=== PATIENT | female | born 1945 | race Caucasian/White ===

== ENCOUNTER 2018-06-14 17:27 | Emergency (ER) | payer MEDICARE, BC ==
[~2018-06-14] VITALS: Ht 165.1 cm; Wt 89.8 kg
[~2018-06-14 17:27] MED LIST: ASPI-1265 PO; BIMA2.5D EACHEYE; CALC-729 PO; CIPR-230 PO; FISH1CAP15 PO; METR-159 PO; MULT-1085 PO; RAMI5CAP65 PO; ROSU5TAB PO
[2018-06-14 18:41] LABS: BASOPHILS # (AUTO) 0.1 X10'3 (0-0.2); BASOPHILS % (AUTO) 0.4 % (0-1); EOSINOPHILS # (AUTO) 0.1 X10'3 (0-0.9); EOSINOPHILS % (AUTO) 0.4 % (0-6); HEMATOCRIT 41.4 % (35.0-45.0); HEMOGLOBIN 13.7 g/dl (12.0-16.0); LYMPHOCYTES # (AUTO) 1.3 X10'3 (1.1-4.8); LYMPHOCYTES % (AUTO) 8.2 % (21-51); MEAN CORPUSCULAR HEMOGLOBIN 27.9 PG (27.0-31.0); MEAN CORPUSCULAR VOLUME 84.5 FL (78-98); MEAN PLATELET VOLUME 8.5 FL (7.4-10.4); MONOCYTES # (AUTO) 0.8 X10'3 (0-0.9); MONOCYTES % (AUTO) 4.9 % (2-12); NEUTROPHILS # (AUTO) 13.8 X10'3 (1.8-7.7); NEUTROPHILS % (AUTO) 86.1 % (42-75); PLATELET COUNT 276 X10'3 (140-440); RED CELL DISTRIBUTION WIDTH 12.3 % (11.5-14.5); WHITE BLOOD COUNT 16.1 X10'3 (4.5-11.0)
[2018-06-14 18:49] LABS: ALANINE AMINOTRANSFERASE 28 U/L (12-78); ALBUMIN/GLOBULIN RATIO 1.1 (1.1-1.5); ALKALINE PHOSPHATASE 99 IU/L (46-116); AMYLASE 112 U/L (25-115); ANION GAP 12 (8-16); ASPARTATE AMINO TRANSFERASE 18 U/L (10-37); BILIRUBIN,TOTAL 0.5 MG/DL (0.1-1.0); BLOOD UREA NITROGEN 24 MG/DL (7-18); BUN/CREATININE RATIO 27.6 (6.6-38.0); CALCIUM 9.5 MG/DL (8.5-10.1); CHLORIDE 102 MMOL/L (99-107); CREATININE 0.87 MG/DL (0.40-0.90); GLUCOSE 161 MG/DL (70-104); LIPASE 194 U/L (73-393); POTASSIUM 3.9 MMOL/L (3.5-5.1); SODIUM 140 MMOL/L (135-145); TOTAL CARBON DIOXIDE 25.7 MMOL/L (24-32); TOTAL PROTEIN 7.8 G/DL (6.4-8.2); eGFR 64 ML/MIN
[2018-06-14 19:06] LABS: PROTHROMBIN TIME 10.2 SECONDS (9.0-12.0)
[2018-06-14] MEDS ORDERED: ciprofloxacin 250mg tablet PO ONE (20:45)
[2018-06-14] MEDS ORDERED: metroNIDAZOLE-Flagyl 500mg/NS 100 ML IV ONE (20:45)
[2018-06-14] MEDS ORDERED: normal saline 1000ML IV soln IVB ONE (20:45)
[2018-06-14] MEDS ORDERED: acetaminophen 325mg tablet PO ONE (21:30)
[2018-06-14] MEDS ORDERED: METR-159 PO (22:24)
[2018-06-14] MEDS ORDERED: CIPR-230 PO (22:24)
[2018-06-14] MEDS ORDERED: DICY10CA88 PO (22:24)
[2018-06-14] MEDS ORDERED: dicyclomine 10 MG capsule PO ONE (22:25)
[2018-06-14 23:26] VITALS: BP 124/59
== END 2018-06-14 23:38 | disposition home or self-care (01) ==
LOC: ER 17:27
DX: K52.9 Noninfective gastroenteritis and colitis, unspecified (principal); I10 Essential (primary) hypertension; E11.9 Type 2 diabetes mellitus without complications; Z88.8 Allergy status to other drugs, medicaments and biological substances; Z79.82 Long term (current) use of aspirin
CPT/HCPCS: 36415; 80053; 82150; 83690; 85025; 85610; 86885; 86900; 86901; 96365; 99284; J3490; J7030

== ENCOUNTER 2021-06-25 10:43 | Emergency (ER) | payer MEDICARE, BC ==
[~2021-06-25] VITALS: Ht 165.1 cm; Wt 92.5 kg
[~2021-06-25 10:43] MED LIST changes: +CIPR-202 PO; -CIPR-230 PO; +DICY10CA88 PO
[2021-06-25 11:22] LABS: BASOPHILS # (AUTO) 0.1 X10'3 (0-0.2); BASOPHILS % (AUTO) 0.5 % (0-1); EOSINOPHILS % (AUTO) 0.2 % (0-6); HEMATOCRIT 36.7 % (35.0-45.0); HEMOGLOBIN 12.4 g/dl (12.0-16.0); LYMPHOCYTES # (AUTO) 1.7 X10'3 (1.1-4.8); LYMPHOCYTES % (AUTO) 14.3 % (21-51); MEAN CORPUSCULAR HEMOGLOBIN 28.7 PG (27.0-31.0); MEAN CORPUSCULAR HGB CONC 33.9 g/dL (33.0-36.5); MEAN CORPUSCULAR VOLUME 84.7 FL (78-98); MEAN PLATELET VOLUME 8.1 FL (7.4-10.4); MONOCYTES # (AUTO) 0.7 X10'3 (0-0.9); MONOCYTES % (AUTO) 5.7 % (2-12); NEUTROPHILS # (AUTO) 9.6 X10'3 (1.8-7.7); NEUTROPHILS % (AUTO) 79.3 % (42-75); PLATELET COUNT 270 X10'3 (140-440); RED BLOOD COUNT 4.33 X10'6 (4.20-5.60); RED CELL DISTRIBUTION WIDTH 13.4 % (11.5-14.5)
[2021-06-25 11:43] LABS: ALANINE AMINOTRANSFERASE 30 U/L (12-78); ALBUMIN 3.6 G/DL (3.4-5.0); ALKALINE PHOSPHATASE 93 IU/L (46-116); ANION GAP 8 (8-16); ASPARTATE AMINO TRANSFERASE 17 U/L (10-37); BLOOD UREA NITROGEN 18 MG/DL (7-18); BUN/CREATININE RATIO 18.8 (6.6-38.0); CALCIUM 8.9 MG/DL (8.5-10.1); CHLORIDE 101 MMOL/L (99-107); CREATININE 0.96 MG/DL (0.40-0.90); GLUCOSE 200 MG/DL (70-104); LIPASE < 50 U/L (73-393); POTASSIUM 3.8 MMOL/L (3.5-5.1); SODIUM 137 MMOL/L (135-145); TOTAL CARBON DIOXIDE 28.3 MMOL/L (24-32); TOTAL PROTEIN 7.3 G/DL (6.4-8.2); eGFR 57 ML/MIN
[2021-06-25] MEDS ORDERED: ringers solution, lacted 1,000 ML IV ONE (12:45)
[2021-06-25] MEDS ORDERED: morphine 4 MG/ML inj SYRINge IV ONE (12:45)
[2021-06-25] MEDS ORDERED: iohexol 300mg/ml 100ml inj. ONE (13:36)
[2021-06-25 14:57] VITALS: BP 166/73
--- NOTE | 2021-06-25 15:20 | NUR ---
ELIZA CALLED, PHONE #[phone]
[2021-06-25] MEDS ORDERED: METR-159 PO (15:49)
[2021-06-25 16:13] LABS: CLARITY,URINE CLEAR (Clear); COLOR,URINE YELLOW (Yellow); GLUCOSE, URINE NEGATIVE (Neg); KETONES,URINE NEGATIVE (Neg); LEUKOCYTE ESTERASE ,URINE NEGATIVE (Neg); NITRITES, URINE NEGATIVE (Neg); OCCULT BLOOD,URINE TRACE-INTACT (Neg); PH,URINE 5.5 (4.8-8.0); PROTEIN,URINE NEGATIVE (Neg); UROBILINOGEN,URINE 0.2 E.U/dL (0.2-1.0)
[2021-06-25 16:15] LABS: UA COLLECTION TYPE CLN CATCH MIDSTREAM
[2021-06-25 16:24] LABS: BACTERIA,URINE NONE SEEN /HPF (Neg); RBC,URINE 0-2 /HPF (0-2); SQUAMOUS EPITHELIAL CELL,UR FEW /LPF (FEW); WBC,URINE 0-4 /HPF (0-4)
== END 2021-06-25 16:44 | disposition home or self-care (01) ==
LOC: ER 10:44
DX: K52.9 Noninfective gastroenteritis and colitis, unspecified (principal); Z87.19 Personal history of other diseases of the digestive system
CPT/HCPCS: 36415; 74177; 80053; 81001; 83690; 85025; 96361; 96374; 99285; J2270; J7120; Q9967

== ENCOUNTER 2023-02-01 09:12 | Emergency (ER) | payer MEDICARE, BC ==
[~2023-02-01] VITALS: Ht 165.1 cm; Wt 90.9 kg
[2023-02-01 09:14] VITALS: BP 215/80; PULSE 74; RESP 16; TEMP 97; O2SAT 96
[2023-02-01] MEDS ORDERED: CYCL-1 PO ×3 (10:18→14:02)
--- NOTE | 2023-02-01 10:27 | NUR ---
PT PRESENTS TO THE ER FOR MECHANICAL FALL LAST NIGHT AROUND 8PM. PT DENIES DIZZINESS, PT STATES " THERE WAS WATER ON THE FLOOR". PAIN DENIES PAIN.
== END 2023-02-01 10:52 | disposition home or self-care (01) ==
LOC: ER 09:13
DX: M25.551 Pain in right hip (principal); I10 Essential (primary) hypertension; E11.9 Type 2 diabetes mellitus without complications; Z88.8 Allergy status to other drugs, medicaments and biological substances; Z79.899 Other long term (current) drug therapy; Z88.6 Allergy status to analgesic agent; W19.XXXA Unspecified fall, initial encounter; Y93.89 Activity, other specified; Y92.89 Other specified places as the place of occurrence of the external cause; Y99.8 Other external cause status
CPT/HCPCS: 73502; 99284

== ENCOUNTER 2023-08-13 08:59 | Emergency (ER) | payer MEDICARE, BC ==
[~2023-08-13] VITALS: Ht 165.1 cm; Wt 101.7 kg
[~2023-08-13 08:59] MED LIST changes: +CYCL-1 PO
[2023-08-13] MEDS: normal saline 1000ML IV soln IVB ONE (09:25)
[2023-08-13] MEDS: acetaminophen 1,000mg/100ml IV 100 ML IV STA (09:26)
[2023-08-13 09:44] LABS: BASOPHILS % (AUTO) 0.6 % (0-1); EOSINOPHILS # (AUTO) 0.1 X10'3 (0-0.9); HEMATOCRIT 41.6 % (35.0-45.0); LYMPHOCYTES # (AUTO) 1.2 X10'3 (1.1-4.8); LYMPHOCYTES % (AUTO) 15.9 % (21-51); MEAN CORPUSCULAR HEMOGLOBIN 28.7 PG (27.0-31.0); MEAN CORPUSCULAR HGB CONC 33.7 g/dL (33.0-36.5); MEAN CORPUSCULAR VOLUME 85.2 FL (78-98); MEAN PLATELET VOLUME 8.4 FL (7.4-10.4); MONOCYTES # (AUTO) 0.4 X10'3 (0-0.9); MONOCYTES % (AUTO) 4.8 % (2-12); NEUTROPHILS # (AUTO) 5.9 X10'3 (1.8-7.7); NEUTROPHILS % (AUTO) 77.7 % (42-75); PLATELET COUNT 202 X10'3 (140-440); RED BLOOD COUNT 4.88 X10'6 (4.20-5.60); RED CELL DISTRIBUTION WIDTH 14.1 % (11.5-14.5); WHITE BLOOD COUNT 7.6 X10'3 (4.5-11.0)
[2023-08-13 10:35] LABS: BILIRUBIN,URINE NEGATIVE (Neg); CLARITY,URINE SLIGHTLY CLOUDY (Clear); COLOR,URINE YELLOW (Yellow); GLUCOSE, URINE >=1000 mg/dl (Neg); KETONES,URINE NEGATIVE (Neg); LEUKOCYTE ESTERASE ,URINE NEGATIVE (Neg); NITRITES, URINE NEGATIVE (Neg); OCCULT BLOOD,URINE NEGATIVE (Neg); PH,URINE 5.5 (4.8-8.0); PROTEIN,URINE NEGATIVE (Neg); UROBILINOGEN,URINE 0.2 E.U/dL (0.2-1.0)
[2023-08-13 10:38] LABS: ALANINE AMINOTRANSFERASE 29 U/L (12-78); ALBUMIN 3.8 G/DL (3.4-5.0); ALBUMIN/GLOBULIN RATIO 1.1 (1.1-1.5); ALKALINE PHOSPHATASE 70 IU/L (46-116); ANION GAP 10 (8-16); ASPARTATE AMINO TRANSFERASE 19 U/L (10-37); BILIRUBIN,TOTAL 0.5 MG/DL (0.1-1.0); BLOOD UREA NITROGEN 16 MG/DL (7-18); BUN/CREATININE RATIO 17.8 (10.0-20.0); CALCIUM 9.6 MG/DL (8.5-10.1); CHLORIDE 104 MMOL/L (99-107); GLUCOSE 203 MG/DL (70-104); LIPASE 35 U/L (16-77); SODIUM 143 MMOL/L (135-145); TOTAL CARBON DIOXIDE 28.7 MMOL/L (24-32); TOTAL PROTEIN 7.4 G/DL (6.4-8.2); eCRCL 47 ML/MIN; eGFR 61 ML/MIN
[2023-08-13 10:48] LABS: SQUAMOUS EPITHELIAL CELL,UR MANY /LPF (FEW); UA COLLECTION TYPE CLN CATCH MIDSTREAM
[2023-08-13 10:50] LABS: BACTERIA,URINE FEW /HPF (Neg); WBC,URINE 0-4 /HPF (0-4); YEAST MANY /HPF (NEGATIVE)
[2023-08-13] MEDS ORDERED: iohexol 300mg/ml 100ml inj. ONE (11:04)
[2023-08-13] MEDS ORDERED: CIPR-20 PO (12:26)
[2023-08-13] MEDS ORDERED: METR-159 PO (12:26)
[2023-08-13 13:01] VITALS: BP 164/7; PULSE 77
[2023-08-13 13:02] VITALS: RESP 17; TEMP 98.2; O2SAT 94
[2023-08-14] MEDS ORDERED: MESSAGE TO NURSING PO NR (11:15)
== END 2023-08-13 13:12 | disposition home or self-care (01) ==
LOC: ER 09:00
DX: K52.9 Noninfective gastroenteritis and colitis, unspecified (principal); I10 Essential (primary) hypertension; E11.9 Type 2 diabetes mellitus without complications; Z88.6 Allergy status to analgesic agent; Z79.82 Long term (current) use of aspirin; Z79.2 Long term (current) use of antibiotics; Z79.899 Other long term (current) drug therapy
CPT/HCPCS: 36415; 74177; 80053; 81001; 83690; 85025; 96374; 99285; J0131; J3490; J7030; Q9967

== ENCOUNTER 2024-09-05 15:56 | Emergency (ER) | payer MEDICARE, BC ==
[~2024-09-05] VITALS: Ht 165.1 cm; Wt 84.0 kg
[~2024-09-05 15:56] MED LIST changes: -RAMI5CAP65 PO; +RAMI5CAP71 PO
[2024-09-05] MEDS: methylPREDNISolone acetate 80mg/ml inj**IM only IM ONE (17:59)
[2024-09-05] MEDS: LIDOcaine 1% 30ml preserv. free vial IJ STA (17:59)
[2024-09-05] MEDS ORDERED: DICL20GE TOP (19:03)
[2024-09-05 19:14] VITALS: BP 149/56; PULSE 76; RESP 18; TEMP 98.6; O2SAT 99
== END 2024-09-05 19:15 | disposition home or self-care (01) ==
LOC: ER 15:57
DX: M77.8 Other enthesopathies, not elsewhere classified (principal); M75.101 Unspecified rotator cuff tear or rupture of right shoulder, not specified as traumatic; E11.9 Type 2 diabetes mellitus without complications; I10 Essential (primary) hypertension; Z88.6 Allergy status to analgesic agent
CPT/HCPCS: 73030; 99283